=== PATIENT | male | born 1945 | race Caucasian/White ===

== ENCOUNTER → 2016-09-08 | Day surgery (SDC) | payer MEDICARE ==
[~2016-09-08] MED LIST: BUPIVACAINE/EPINEPHRINE 0.25% 50 ML VIAL ONE; LACTATED RINGER'S 1000 ML INJ 1,000 ML ONE; LIDOCAINE 1%/EPINEPHrine 1:100,000 SOLN 30 ML VIAL ONE; MIDAZOLAM HCL 2 MG/2 ML VIAL ONE; PROPOFOL 200 MG/20 ML AMP IV ONE; SODIUM CHLOR 0.9% 250 ML INJ 250 ML IV ONE; VANCOMYCIN HCL 1000 MG VIAL ONE; ceFAZolin INJ 1,000 MG VIAL ONE
--- NOTE | 2016-09-09 08:31 | MP ---
cc: QUAN LUGO M.D., MARK W. M.D., PH.D DATE OF SURGERY 09/08/2016 PROCEDURE Excision soft tissue masses times 13 from both upper arms anterior and posterior, eight lesions on the left, five lesions on the right through 11 separate incisions. PREOPERATIVE DIAGNOSIS Soft tissue masses both upper arms. POSTOPERATIVE DIAGNOSIS Soft tissue masses both upper arms. ANESTHESIA LMA SURGEON Quan Lugo MD ESTIMATED BLOOD LOSS Less than 30 mL FLUIDS 850 mL crystalloid COMPLICATIONS None DRAINS None SPECIMEN 13 soft tissue masses of various sizes in two containers to pathology. COMPLICATIONS None DRAINS None PROCEDURE IN DETAIL The patient was seen in the holding area and 13 different masses were identified by the patient to target for excision. These were all circled. During surgery, 11 separate incisions were made to allow for removal of the lesions. Two lesions on the left posterior triceps region and two lesions on the left deltoid region were able to be excised through the same incision. PROCEDURE IN DETAIL The patient was taken to the operating room and placed on the operating table in supine position. After an adequate level of laryngeal mask anesthesia was instituted, the right arm was prepped anteriorly and draped. Time-out was taken confirming the correct patient, site, and procedures to be performed. Skin and subcutaneous tissue was infiltrated with local anesthetic and the upper inner right arm soft tissue mass was excised through an incision. This was 0.5 x 0.5 cm. A second incision was made in the right outer arm area and a 1 x 1 cm soft tissue mass was excised. Both of these areas were made hemostatic and closed in two layers with interrupted 3-0 Vicryl suture and Steri-Strips. The right arm was then pulled across the anterior chest and the posterior upper arm was prepped and draped. In the distal triceps area, two incisions were made and a 1.5 x 1.5 cm and a 2 x 2 cm soft tissue mass were removed from the right upper arm distal triceps area. A third incision was made in the triceps area and a 1 x 1 cm soft tissue mass was excised and removed. These were all passed off the table. At this point, the three incisions posteriorly were closed in two layers with interrupted 3-0 Vicryl suture dressed with Steri-Strips. Thus a total of five incisions were made to remove five lesions. All were dissected through the subcutaneous tissue to remove them. Attention was then turned to the left side and the anterior upper forearm was prepped and draped. An incision was made in the upper arm deltoid region more proximally and a 1.5 x 2 cm soft tissue mass was easily removed with sharp dissection. The wound was made hemostatic and attention then turned to the distal deltoid region and a separate 2 x 2 cm mass was excised through a separate incision. A second 2 x 2 cm soft tissue mass was excised through this same incision and removed. Dissection was carried down through the subcutaneous tissue to remove these three lesions. All three wounds were made hemostatic and then closed in two layers with interrupted 3-0 Vicryl suture and Steri-Strips. The left arm was then placed across the chest and the triceps region was prepped and draped. Three separate incisions were made and a 1.5 x 1.5 cm soft tissue mass was removed through the distal triceps region. A 1 x 1.5 cm soft tissue mass was removed through the left mid triceps region and then a second lesion was removed through this same incision that was 1.5 x 3 cm in size. The left proximal triceps region was then incised and a 3 x 2.5 cm soft tissue mass was removed through this. The total of eight soft tissue lesions were removed on the left side. All dissections were carried down throught the subcutaneous tissue to excise these soft tissue masses. These were placed into a single cup and submitted for specimen analysis. The triceps incisions, which were three in total number, were closed in two layers with interrupted 3-0 Vicryl suture and Steri-Strips. In summary, there were five separate incisions on the right arm and six separate incisions on the left. The patient was then extubated and taken back to the recovery room in stable condition. He tolerated the procedure well. MD ML Kaur/TWYLA /9:56 AM /8:11 AM CARLOS
== END | disposition home or self-care (01) ==
LOC: ESDC 06:51
PROVIDERS: ATTEND Surgery Trauma Surgery
DX: D17.22 Benign lipomatous neoplasm of skin and subcutaneous tissue of left arm (principal); R22.31 Localized swelling, mass and lump, right upper limb; D17.21 Benign lipomatous neoplasm of skin and subcutaneous tissue of right arm
CPT/HCPCS: 00400; 11400; 11401; 11402; 11403; 11404; 11406; 12036; 88304; J0690; J2250; J3010; J3370; J7050; J7120; 88305